=== PATIENT | male | born 1975 | race Caucasian/White ===

== ENCOUNTER 2021-03-03 16:26 | Emergency (ER) | payer SELFPAY ==
[~2021-03-03] VITALS: Ht 180.3 cm; Wt 79.3 kg
[2021-03-03] MEDS ORDERED: LORazepam INJ 2 MG/ML (ATIVAN) VIAL ONE (16:41)
[2021-03-03] MEDS ORDERED: NS (IVPB) 100 ML ONE ×2 (16:46→16:49)
[2021-03-03] MEDS ORDERED: LORazepam INJ 2 MG/ML (ATIVAN) VIAL IVP ONE (17:00)
[2021-03-03 17:10] LABS: BASOPHILS # (AUTO) 0.1 10^3/uL (0.0-0.1); BASOPHILS % (AUTO) 1 % (0-10); EOSINOPHILS # (AUTO) 0.1 10^3/uL (0.0-0.3); EOSINOPHILS % (AUTO) 1 % (0-10); HEMATOCRIT 51 % (40-54); LYMPHOCYTES # (AUTO) 4.2 10^3/uL (1.0-4.0); LYMPHOCYTES % (AUTO) 34 % (12-44); MEAN CORPUSCULAR HEMOGLOBIN 32 pg (25-34); MEAN CORPUSCULAR HGB CONC 33 g/dL (32-36); MEAN CORPUSCULAR VOLUME 97 fL (80-99); MEAN PLATELET VOLUME 8.9 fL (9.0-12.2); MONOCYTES # (AUTO) 0.8 10^3/uL (0.0-1.0); MONOCYTES % (AUTO) 7 % (0-12); NEUTROPHILS % (AUTO) 57 % (42-75); PLATELET COUNT 282 10^3/uL (130-400); WHITE BLOOD COUNT 12.3 10^3/uL (4.3-11.0)
[2021-03-03 17:14] LABS: CHLORIDE 106 MMOL/L (98-107); POTASSIUM 3.8 MMOL/L (3.6-5.0); SODIUM 148 MMOL/L (135-145)
[2021-03-03 17:16] LABS: GLUCOSE 173 MG/DL (70-105)
[2021-03-03 17:17] LABS: CARBON DIOXIDE 21 MMOL/L (21-32)
[2021-03-03 17:18] LABS: BILIRUBIN,TOTAL 1.4 MG/DL (0.1-1.0)
[2021-03-03 17:20] LABS: ALKALINE PHOSPHATASE 106 U/L (40-136); CREATININE SERUM 0.84 MG/DL (0.60-1.30); GFR ESTIMATED 98
[2021-03-03 17:21] LABS: BUN/CREATININE RATIO 7
[2021-03-03 17:23] LABS: ALANINE AMINOTRANSFERASE 38 U/L (0-55); MAGNESIUM 2.1 MG/DL (1.6-2.4)
[2021-03-03 17:44] LABS: TSH (THYROID ANALYZER) 0.42 UIU/ML (0.35-4.94)
[2021-03-03] MEDS ORDERED: LACTATED RINGERS 1,000 ML IV ONE (18:15)
--- NOTE | 2021-03-03 18:27 | Diagnostic Imaging Report ---
PROCEDURE: CT head without contrast. TECHNIQUE: Multiple contiguous axial images were obtained through the brain without the use of intravenous contrast. Auto Exposure Controls were utilized during the CT exam to meet ALARA standards for radiation dose reduction. DATE: March 03, 2021. COMPARISON: None. INDICATION: 45-year-old male, seizure. FINDINGS: The ventricles and cerebral spinal fluid spaces are of normal size and configuration for the patient's age. There is no mass effect or midline shift. There is no acute intracranial hemorrhage. There is no abnormal extra-axial fluid collection. The visualized portions of the paranasal sinuses, mastoid air cells and middle ears are well aerated. IMPRESSION: 1. No identified acute intracranial abnormality. Dictated by: Dictated on workstation # [id number]
[2021-03-03] MEDS ORDERED: CLORAZEPATE 7.5 MG (TRANXENE) TAB PO ONE (19:15)
--- NOTE | 2021-03-03 19:16 | ED Neurological Problem ---
General Chief Complaint: Neurological Problems Stated Complaint: SEIZURE,HEADACHE,SPEECH ISSUES Nursing Triage Note: Pt ambulatory to ED with friend. Friend reports pt had seizure today at 1340. Seizure lasted 1-2 minutes and friend reports it took pt 10-15 minutes to "come to." Friend reports pt has had difficulty with speech today and has not been making sense. Pt c/o headache and "electric pulses" behind eye. Source: patient Exam Limitations: no limitations History of Present Illness Date Seen by Provider: Mar 03, 2021 Time Seen by Provider: 16:37 Initial Comments This 45-year-old gentleman with seizure disorder 1st diagnosed about a year ago presents to the emergency room with a seizure today despite compliance with his medications. He is accompanied by a female friend. He has recently moved to the area and has not been seen here before. He has previously been cared for at [facility] and at [facility]. He 1st had a seizure about a year ago last March. 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 He has since recovered much of that function. He had 2 additional seizures this spring but was then seizure-free until he had a seizure lasting approximately 5 minutes at about 13:40. This was witnessed by his female orthodontic technician. She noted him to have a confused postictal state and some stuttering speech after that. He complained of some "electric shock sensations" going through his body after the seizure. Patient presently takes Keppra 1500 mg twice daily, lamotrigine 150 mg twice daily, gabapentin 300 mg twice daily, and Lyrica 150 mg twice daily. He reports imaging studies in the past have never revealed any intracranial abnormalities. Cause of his seizures is unknown. Patient has had a recent move but denies any significant stress with this situation. He denies any recent illness, drug or alcohol use, sleep deprivation, or any other seizure triggering factor. His only complaint at this time is headache. Margi Nice is his primary care provider in [place]. Allergies and Home Medications Allergies Coded Allergies: No Known Drug Allergies (Unverified , 03/03/21) Home Medications Clorazepate Dipotassium 3.75 Mg Tablet, 3.75 MG PO BID Prescribed by: THIAGO MORALES on 03/03/211917 Patient Home Medication List Home Medication List Reviewed: Yes Review of Systems Review of Systems Constitutional: no symptoms reported Eyes: No Symptoms Reported Ears, Nose, Mouth, Throat: no symptoms reported Respiratory: no symptoms reported Cardiovascular: no symptoms reported Gastrointestinal: no symptoms reported Genitourinary: no symptoms reported Musculoskeletal: no symptoms reported Skin: no symptoms reported Psychiatric/Neurological: See HPI Endocrine: No Symptoms Reported Hematologic/Lymphatic: No Symptoms Reported Past [id number]-Hmacyd Hx Patient Social History Tobacco Use?: Yes Tobacco type used: Cigarettes Smoking Status: Current Everyday Smoker Substance use?: No Additional substance use comme: past hx or crack cocaine Alcohol Use?: Yes Alcohol Frequency: Rarely Pt feels they are or have been: No Immunizations Up To Date First/Initial COVID19 Vaccinat: 11/28 Second COVID19 Vaccination [place]: 12/28 COVID19 Vaccine Supervising Editor News Reel: Seventymm Past Medical History Surgeries: Yes Orthopedic Respiratory: No Cardiac: No Neurological: Yes Spinal Cord Injury (Peripheral deficits in the right upper extremity 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 oz. 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 nml as tested, no motor/sensory deficits, alert, normal mood/affect, oriented x 3 Crainal Nerves: normal hearing, normal speech, PERRL Motor/Sensory: no motor deficit, no sensory deficit Skin: normal color, warm/dry Progress/Results/Core Measures Results/Orders Lab Results Laboratory Tests Test 03/03/21 16:45 03/03/21 17:00 Range/Units White Blood Count 12.3 H 4.3-11.0 10^3/uL Red Blood Count 5.24 4.30-5.52 10^6/uL Hemoglobin 17.0 13.3-17.7 g/dL Hematocrit 51 40-54 % Mean Corpuscular Volume 97 80-99 fL Mean Corpuscular Hemoglobin 32 25-34 pg Mean Corpuscular Hemoglobin Concent 33 32-36 g/dL Red Cell Distribution Width 11.3 10.0-14.5 % Platelet Count 282 130-400 10^3/uL Mean Platelet Volume 8.9 L 9.0-12.2 fL Immature Granulocyte % (Auto) 1 % Neutrophils (%) (Auto) 57 42-75 % Lymphocytes (%) (Auto) 34 12-44 % Monocytes (%) (Auto) 7 0-12 % Eosinophils (%) (Auto) 1 0-10 % Basophils (%) (Auto) 1 0-10 % Neutrophils # (Auto) 7.0 1.8-7.8 10^3/uL Lymphocytes # (Auto) 4.2 H 1.0-4.0 10^3/uL Monocytes # (Auto) 0.8 0.0-1.0 10^3/uL Eosinophils # (Auto) 0.1 0.0-0.3 10^3/uL Basophils # (Auto) 0.1 0.0-0.1 10^3/uL Immature Granulocyte # (Auto) 0.1 0.0-0.1 10^3/uL Sodium Level 148 H 135-145 MMOL/L Potassium Level 3.8 3.6-5.0 MMOL/L Chloride Level 106 98-107 MMOL/L Carbon Dioxide Level 21 21-32 MMOL/L Anion Gap 21 H 5-14 MMOL/L Blood Urea Nitrogen 6 L 7-18 MG/DL Creatinine 0.84 0.60-1.30 MG/DL Estimat Glomerular Filtration Rate 98 BUN/Creatinine Ratio 7 Glucose Level 173 H 70-105 MG/DL Calcium Level 10.0 8.5-10.1 MG/DL Corrected Calcium 8.5-10.1 MG/DL Magnesium Level 2.1 1.6-2.4 MG/DL Total Bilirubin 1.4 H 0.1-1.0 MG/DL Aspartate Amino Transf (AST/SGOT) 18 5-34 U/L Alanine Aminotransferase (ALT/SGPT) 38 0-55 U/L Alkaline Phosphatase 106 40-136 U/L C-Reactive Protein High Sensitivity 0.07 0.00-0.50 MG/DL Total Protein 8.0 6.4-8.2 GM/DL Albumin 5.0 H 3.2-4.5 GM/DL TSH [place] Testing 0.42 0.35-4.94 UIU/ML Serum Alcohol < 10 <10 MG/DL Glucometer 170 H 70-110 MG/DL My Orders Orders - THIAGO INIGUEZ MD Lorazepam Injection (Ativan Injection) (03/03/21 16:41) Levetiracetam Injection (Keppra Injectio (03/03/21 16:43) Ns (Ivpb) (Sodium Chloride 0.9% Ivpb Bag (03/03/21 16:46) Ns (Ivpb) (Sodium Chloride 0.9% Ivpb Bag (03/03/21 16:49) Alcohol (03/03/21 16:59) Cbc With Automated Diff (03/03/21 16:59) Comprehensive Metabolic Panel (03/03/21 16:59) Magnesium (03/03/21 16:59) Thyroid Analyzer (03/03/21 16:59) Accucheck Stat ONCE (03/03/21 16:59) Ed Iv/Invasive Line Start (03/03/21 16:59) O2 (03/03/21 16:59) Monitor-Rhythm Ecg Trace Only (03/03/21 16:59) Ct Head Wo (03/03/21 16:59) Lorazepam Injection (Ativan Injection) (03/03/21 17:00) Levetiracetam Injection (Keppra Injectio (03/03/21 16:59) Hs C Reactive Protein (03/03/21 17:45) Lactated Ringers (Lr 1000 Ml Iv Solution (03/03/21 18:15) Clorazepate Tablet (Tranxene Tablet) (03/03/21 19:15) Medications Given in ED Current Medications Medications Dose Ordered Sig/Melonie Route Start Time Stop Time Status Last Admin Dose Admin Clorazepate Dipotassium 3.75 mg ONCE ONCE PO 03/03/21 19:15 03/03/21 19:16 DC 03/03/21 19:36 3.75 MG Lactated Ringer's 1,000 ml @ 0 mls/hr Q0M ONCE IV 03/03/21 18:15 03/03/21 18:16 DC 03/03/21 18:41 1,000 MLS/HR Levetiracetam 500 mg STK-MED ONCE IV 03/03/21 16:43 03/03/21 16:47 DC 03/03/21 16:51 1,000 MG Lorazepam 2 mg STK-MED ONCE .ROUTE 03/03/21 16:41 03/03/21 16:44 DC 03/03/21 16:49 1 MG Sodium Chloride 100 ml @ ud STK-MED ONCE .ROUTE 03/03/21 16:46 03/03/21 16:50 DC 03/03/21 16:53 100 MLS/HR Vital Signs/I&O 03/03/21 16:38 Temp 36.9 Pulse 80 Resp 22 B/P (MAP) 138/101 (113) Pulse Ox 96 O2 Delivery Room Air Blood Pressure Mean: 113 FSBG Bedside Testing Finger Stick Blood Glucose: 170 Blood Glucose Action Taken: rn notified Progress Progress Note : Progress Note Patient was witnessed to have a seizure lasting about 2 minutes during the initial assessment. He was given Keppra 1000 mg by IV route. He was agitated in the postictal state and was given Ativan. Work-up was relatively unremarkable including CT of the head. I discussed the case with Dr. Vidales, neurologist at [facility]. He suggested treating with clorazepate 3.375 mg twice daily for 5 days as this patient has significant risk of having more cluster seizures in the next few days. The 1st dose of clorazepate was given in the emergency room. Plan was discussed with the patient and he was discharged into the care of his orthodontic technician. Departure Impression Primary Impression: Recurrent seizures Disposition: 01 HOME, SELF-CARE Condition: Improved Departure-Patient Inst. Decision time for Depature: 19:13 Referrals: NO,LOCAL PHYSICIAN (PCP) Primary Care Physician Patient Instructions: Epilepsy in Adults Add. Discharge Instructions: Continue your medications as previously prescribed including your evening medications tonight. Start clorazepate (Tranxene) as prescribed from the ER with your first dose tomorrow morning. Please be advised this medication may make you very sleepy. Please contact your primary care provider soon as possible and seek referral to a neurologist in addition to your neurosurgeon. Avoid any activity that could predispose you to injury should you have a another seizure while doing that activity. Such activities will include driving, operating machinery, use of heights such as a ladder, swimming, etc. Call with questions or concerns. Return to care if you have worsening symptoms or recurrent seizures. All discharge instructions reviewed with patient and/or family. Voiced understanding. Scripts Clorazepate Dipotassium (Clorazepate Dipotassium) 3.75 Mg Tablet 3.75 MG PO BID, #10 TAB Prov: THIAGO INIGUEZ MD 03/03/21 THIAGO INIGUEZ MD Mar 03, 2021 19:16
[2021-03-03] MEDS ORDERED: CLOR3.755 PO (19:18)
[2021-03-03 19:39] VITALS: BP 138/101
== END 2021-03-03 19:41 | disposition home or self-care (01) ==
LOC: EDUNIT# 16:26 → EDBD 16:30 → ER 16:30
DX: G40.909 Epilepsy, unspecified, not intractable, without status epilepticus (principal); F17.210 Nicotine dependence, cigarettes, uncomplicated
CPT/HCPCS: 70450; 80053; 82947; 83735; 84443; 85025; 86141; 93041; 99284; G0480; 36415; 80320